=== PATIENT | male | born 1985 | race Caucasian/White ===

== ENCOUNTER 2020-10-30 08:41 | Emergency (ER) | payer OTHER, SELFPAY ==
[2020-10-30 08:50] VITALS: BP 157/99; PULSE 96; RESP 20; TEMP 36.8; O2SAT 98
--- NOTE | 2020-10-30 09:35 | ED.EAR ---
HPI - Ear Problem General Chief complaint: Ear Stated complaint: Dizziness, pain in right Ear, left Ear drainage Time Seen by Provider: 10/30/20 09:29 Source: patient and RN notes reviewed Mode of arrival: ambulatory Limitations: no limitations History of Present Illness HPI Narrative: Patient presents today complaining of bilateral ear pain and pressure. Left ear started yesterday and right ear started this morning. Currently rates his pain 3/10. Describes the pain is intermittently sharp. He has tried no treatment prior to arrival. Denies any drainage or decreased hearing. He has been vaccinated against COVID-19. Complaint: ear pain Related Data Home Medications Medication Instructions Recorded Confirmed No Home Medications 10/30/20 10/30/20 Allergies Allergy/AdvReac Type Severity Reaction Status Date / Time No Known Allergies Allergy Verified 10/30/20 09:06 Review of Systems Review of Systems: Narrative: CONSTITUTIONAL: Denies body aches, fever, chills, or sweats. EYES: Denies visual changes, redness, or discharge. ENT: Denies rhinorrhea, congestion, sore throat. + Bilateral ear pain CARDIOVASCULAR: Denies chest pain, palpitations, or edema. RESPIRATORY: Denies cough or dyspnea. GASTROINTESTINAL: Denies abdominal pain, nausea, vomiting, or diarrhea. GENITOURINARY: Denies dysuria or hematuria. SKIN: Denies rash, itching, or wounds. MUSCULOSKELETAL: Denies back pain, joint pain, or myalgia. NEUROLOGIC: Denies headache, numbness, tingling, or weakness. PSYCH: Denies depression or anxiety. PMFSH Comments At time of signature, I have reviewed and agree with nursing past medical, surgical, social and family history unless otherwise noted. Please see nursing chart for further information. There is no relevant family history pertinent to the presenting complaint Exam Narrative: Exam Narrative: GENERAL: Well-appearing, well-nourished, and in no acute distress. HEAD: Normocephalic, atraumatic. EYES: EOMI. No redness or drainage. Conjunctivae normal. ENT: Mucous membranes pink and moist. Nares clear. No rhinorrhea. Bilateral mild middle ear effusions without evidence of infection. Throat normal. Uvula midline. NECK: Normal AROM. CHEST: No respiratory distress. EXTREMITIES: Normal range of motion. No edema. SKIN: Warm, dry, no rash. Capillary refill normal. Normal skin turgor. NEURO: No focal deficits. Alert and oriented x3. Gait steady. PSYCH: Normal affect. No signs of depression or anxiety. Course Vital Signs Vital signs: Vital Signs Temperature 98.2 F 10/30/20 08:50 Pulse Rate 96 10/30/20 08:50 Respiratory Rate 20 10/30/20 08:50 Blood Pressure 157/99 H 10/30/20 08:50 Pulse Oximetry 98 10/30/20 08:50 Temperature 98.2 F 10/30/20 08:50 Pulse Rate 96 10/30/20 08:50 Respiratory Rate 20 10/30/20 08:50 Blood Pressure 157/99 H 10/30/20 08:50 Pulse Oximetry 98 10/30/20 08:50 Reviewed. Pt has been instructed to follow up with his PCP regarding his elevated blood pressure today. Medical Decision Making Differential Diagnosis Differential Diagnosis: Otitis media, otitis externa, ruptured TM, serous otitis, eustachian tube dysfunction Vital Signs Vital Signs: Vital Signs Temperature 98.2 F 10/30/20 08:50 Pulse Rate 96 10/30/20 08:50 Respiratory Rate 20 10/30/20 08:50 Blood Pressure 157/99 H 10/30/20 08:50 Pulse Oximetry 98 10/30/20 08:50 Temperature 98.2 F 10/30/20 08:50 Pulse Rate 96 10/30/20 08:50 Respiratory Rate 20 10/30/20 08:50 Blood Pressure 157/99 H 10/30/20 08:50 Pulse Oximetry 98 10/30/20 08:50 Critical Care Time Critical Care Time Critical Care Time: No Discharge Plan Discharge Clinical Impression: Acute serous otitis media of both ears Qualifiers: Recurrence: not specified as recurrent Qualified Code(s): H65.03 - Acute serous otitis media, bilateral Patient Disposition: Home, Self-Care Conditi
== END 2020-10-30 09:42 | disposition home or self-care (01) ==
PROVIDERS: Emergency Provider Nurse Practitioner
DX: H65.03 Acute serous otitis media, bilateral (principal)
CPT/HCPCS: 99211; G0463